=== PATIENT | male | born 1985 | race Caucasian/White ===

== ENCOUNTER 2017-04-24 06:52 | Emergency (ER) | payer BC ==
[~2017-04-24] VITALS: Ht 188 cm; Wt 84.0 kg
[~2017-04-24 06:52] MED LIST: PROM25TA5 PO
[2017-04-24 07:02] VITALS: BP 127/64; PULSE 73; RESP 18; TEMP 97.9; O2SAT 99
--- NOTE | 2017-04-24 07:44 | RADRPT ---
EXAM DATE/TIME: 04/24/2017 07:30 [place] COMPARISON: No previous studies available for comparison. INDICATIONS : States left shoulder dislocated when pushing on something last night, states it went back in place bu t is still painful. Has limited ROM and pain MEDICAL HISTORY : Shoulder dislocations SURGICAL HISTORY : None. ENCOUNTER: Initial ACUITY: 1 day PAIN SCORE: 8/10 LOCATION: Left shoulder FINDINGS: Multiple view examination of the left shoulder demonstrates no evidence of fracture or dislocation. The glenohumeral and acromioclavicular joints are maintained. There is normal range of motion betwee n internal and external rotation. Bony mineralization is normal. CONCLUSION: Anatomic alignment without fracture. History of dislocations dating back to 2004. Dash Rubio MD FACR on April 24, 2017 at 7:41 Board Certified Radiologist. This report was verified electronically.
[2017-04-24] MEDS ORDERED: ULTR50TA5 PO (08:05)
--- NOTE | 2017-04-24 08:06 | PD ---
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) Blood Disorders: No Anxiety: No Depression: No Heart Rhythm Problems: No Cancer: No High Cholesterol: No Chest Pain: No Congestive Heart Failure: No COPD: No Cerebrovascular Accident: No Diabetes: No Diminished Hearing: No GERD: No Glaucoma: No Headaches: Yes Hepatitis: No Hiatal Hernia: No Hypertension: No Immune Disorder: Yes (IGG DEFICIENCY) Kidney Stones: No Respiratory: No Myocardial Infarction: No Renal Failure: No Seizures: No Sleep Apnea: No Thyroid Disease: No Ulcer: No PNEUMOCCOCAL Vaccine (Year): 3 ?: Not Past Surgical History Abdominal Surgery: No AICD: No Cardiac Surgery: No Ear Surgery: No Endocrine Surgery: No Eye Surgery: No Genitourinary Surgery: No Gynecologic Surgery: No Oral Surgery: No Pacemaker: No Thoracic Surgery: No Other Surgery: Yes (LIVER BIOPSY) Social History Alcohol Use: Yes (weekends) Tobacco Use: No Substance Use: Yes (ECTASY) Allergies-Medications (Allergen,Severity, Reaction): Coded Allergies: No Known Allergies (Verified , 04/24/17) Reported Meds & Prescriptions Reported Meds & Active Scripts Active Review of Systems Except as stated in HPI: all other systems reviewed are Neg Musculoskeletal: Positive: Limited ROM, Pain Physical Exam Narrative GENERAL: SKIN: Warm and dry. HEAD: Atraumatic. Normocephalic. EYES: Pupils equal and round. No scleral icterus. No injection or drainage. ENT: No nasal bleeding or discharge. Mucous membranes pink and moist. NECK: Trachea midline. No JVD. CARDIOVASCULAR: Regular rate and rhythm. RESPIRATORY: No accessory muscle use. Clear to auscultation. Breath sounds equal bilaterally. GASTROINTESTINAL: Abdomen soft, non-tender, nondistended. Hepatic and splenic margins not palpable. MUSCULOSKELETAL: Extremities without clubbing, cyanosis, or edema. No obvious deformities. NEUROLOGICAL: Awake and alert. No obvious cranial nerve deficits. Motor grossly within normal limits. Five out of 5 muscle strength in the arms and legs. Normal speech. PSYCHIATRIC: Appropriate mood and affect; insight and judgment normal. Data Data Last Documented VS Vital Signs Date Time Temp Pulse Resp B/P Pulse Ox O2 Delivery O2 Flow Rate FiO2 04/24/17 07:02 97.9 73 18 127/64 99 Orders Shoulder, Complete (>2vws) (04/24/17 ) [facility] Medical Decision Making Medical Screen Exam Complete: Yes Emergency Medical Condition: Yes Medical Record Reviewed: Yes Differential Diagnosis FX V DISLOCATION V SUBLUXATION Narrative Course XRAY SHOWED NORMAL GLENOHUMERAL JOINT Diagnosis Primary Impression: LEFT SHOULDER PAIN Patient Instructions: General Instructions, Return to Work Instructions (DC) Scripts Tramadol (Ultram)50 Mg Tab50 Mg PO Q4H PRN (PAIN) #28 TAB Prov:Joe Brunson MD 04/24/17 Disposition: 01 DISCHARGE HOME Condition: Stable Joe Brunson MD Apr 24, 2017 08:05
== END 2017-04-24 08:14 | disposition home or self-care (01) ==
LOC: PHED 06:52 → PHEFT 08:14
DX: M25.512 Pain in left shoulder (principal)
CPT/HCPCS: 73030; 99283